=== PATIENT | male | born 1960 | race Caucasian/White ===

== ENCOUNTER → 2016-10-17 | Outpatient (CLI) | payer OTHER ==
[2016-10-17 18:04] LABS: Basophils % (A) 1 %; CH 30.7; CHCM 34.9; Eosinophils # (A) 0.2 k/uL (0-0.7); Eosinophils % (A) 3 %; HCT 49.9 % (39.0-53.0); HDW 2.51; HGB 16.5 gm/dL (13.0-17.5); Luc # (Auto) 0.07; Luc % (Auto) 1; Lymphocytes # (A) 1.9 k/uL (1.0-4.8); Lymphocytes % (A) 31 %; MCH 29.2 pg (25.0-35.0); MCHC 33.1 g/dL (31.0-37.0); MCV 88.2 fL (80.0-100.0); Mean Platelet Volume 6.6; Monocytes # (A) 0.3 k/uL (0-1.0); Monocytes % (A) 4 %; Neutrophils # (A) 3.6 k/uL (1.3-7.7); Neutrophils % (A) 60 %; RBC 5.66 m/uL (4.30-5.90); RDW 12.5 % (11.5-15.5); WBC (Perox) 5.97
[2016-10-17 18:18] LABS: ALT 26 U/L (21-72); AST 23 U/L (17-59); Alkaline Phosphatase 60 U/L (38-126); Anion Gap 11 mmol/L; Blood Urea Nitrogen 12 mg/dL (9-20); Calcium 9.4 mg/dL (8.4-10.2); Carbon Dioxide 28 mmol/L (22-30); Chloride 105 mmol/L (98-107); Cholesterol 141 mg/dL (<200); Glucose 134 mg/dL (74-99); HDL Cholesterol 53 mg/dL (40-60); Non-African American GFR(MDRD) >60 (>60 ml/min/1.73 sqM); Potassium 4.1 mmol/L (3.5-5.1); Sodium 144 mmol/L (137-145); Total Bilirubin 0.5 mg/dL (0.2-1.3); Total Protein 7.1 g/dL (6.3-8.2); Triglycerides 75 mg/dL (<150)
== END | disposition home or self-care (01) ==
LOC: MMGSC 15:54
PROVIDERS: ATTEND Family Medicine
DX: Z12.5 Encounter for screening for malignant neoplasm of prostate (principal); R03.0 Elevated blood-pressure reading, without diagnosis of hypertension; E29.1 Testicular hypofunction
CPT/HCPCS: 84439; 80053; 80061; 84443; 85025; 84403; 36415; G0103

== ENCOUNTER → 2017-02-14 | Outpatient (CLI) | payer OTHER ==
--- NOTE | 2017-02-14 10:45 | EST ---
DATE OF SERVICE: 02/14/2017 AGE: 56Y SEX: M HT: 5'11" WT: 170 lbs. Protocol Marcelo: X Other: Cardiolite Stage: III Dur. of Exercise: 11 minutes *Heart Rate Blood Pressure *Rest: 59 Rest: 142/90 * *Max. Achieved: 139 Maximum BP: 196/100 85% PMHR: 139 100% PMHR: 164 *METS: 12.1 INDICATIONS: Chest pain, hypertension. MEDICATIONS: Patient was exercised for a total period of 11 minutes. Peak heart rate of 139 was achieved. Maximum blood pressure of 196/100 mmHg was noted. EKG shows normal sinus rhythm with normal IL interval and QRS duration and normal ST-T waves. ( ) exercise minimal upsloping ST segment changes were noted. The patient did not complain of any anginal pain during the test. FINAL IMPRESSION: 1. This exercise test is not suggestive of ischemia. 2. Patient's exercise tolerance is normal. 3. Patient did not complain of any chest pain during the test. 4. The results of the nuclear study will follow.
--- NOTE | 2017-02-14 12:26 | NM ---
EXAMINATION TYPE: NM stress cardiolite complete DATE OF EXAM: 02/14/2017 COMPARISON: NONE HISTORY: Chest pain and hypertension TECHNIQUE: After the intravenous administration of 11 mCi Tc 99m Sestamibi - Rest images obtained 45 minutes post injection. The patient exercised using a KASHIF protocol and 1 minute prior to peak ex ercise was injected with 27 mCi Tc 99m Sestamibi - Stress images obtained 20 minutes post injection. FINDINGS: Targeted heart rate was achieved during performance of the study. Review of stress and rest SPECT roney ges demonstrates no distinct perfusion abnormality. Gated analysis shows normal wall motion with an estimated left ventricular ejection fraction of 57 %. Some mild cardiac apex thickening may be present. IMPRESSION: 1. No stress-induced ischemic changes.
== END | disposition home or self-care (01) ==
LOC: RADNMMAIN 07:45
PROVIDERS: ATTEND Family Medicine
DX: R07.9 Chest pain, unspecified (principal); I10 Essential (primary) hypertension
CPT/HCPCS: 93017; 78452; A9500

== ENCOUNTER → 2020-03-28 | Outpatient (CLI) | payer OTHER ==
--- NOTE | 2020-03-28 12:33 | MR ---
EXAMINATION TYPE: MR shoulder RT wo con DATE OF EXAM: 03/28/2020 COMPARISON: Outside right shoulder x-ray March 01, 2020 HISTORY: Right shoulder pain per order. Pain with difficulty raising overhead for 6 to 8 months per p atient. TECHNIQUE: Multiplanar, multisequence imaging of the right shoulder is performed without contrast. FINDINGS: Rotator Cuff: Some increased signal distal supraspinatus and infraspinatus tendons. Small articular s urface tears present for reference supraspinatus tear measures 7 mm AP diameter by 4 mm transversely sagittal image 22 and coronal image 12 respectively. Additional tiny tear anterior fibers of the infr aspinatus tendon fell present sagittal image 23 and coronal image 17. No full-thickness retracted tea r is identified. Rotator cuff muscle bulk preserved. Subscapularis tendon intact. Acromioclavicular Joint: Mild to moderate narrowing with moderate capsular hypertrophy. No significan t spurring. Underlying fat plane maintained. Distal acromion morphology unremarkable. Glenohumeral Joint: Mild to moderate narrowing with small glenohumeral joint effusion. No significant spurring. Labrum: The labrum appears grossly intact given limitation of non-arthrogram study. Biceps Tendon: The long head of biceps is in normal location within bicipital groove. Bone marrow signal: A few tiny subchondral cysts scattered throughout the humeral head. Other: No additional significant abnormality is appreciated. IMPRESSION: Tendinosis and partial articular surface tearing of the supraspinatus and to lesser degre e infraspinatus tendons. No full-thickness retracted tear is identified.
== END | disposition home or self-care (01) ==
LOC: RADMRIMAIN 11:40
PROVIDERS: ATTEND Orthopaedic Surgery
DX: M75.101 Unspecified rotator cuff tear or rupture of right shoulder, not specified as traumatic (principal)

== ENCOUNTER → 2020-04-27 | Outpatient (CLI) | payer OTHER ==
--- NOTE | 2020-04-27 09:00 | MR ---
EXAMINATION TYPE: MR lumbar spine wo con DATE OF EXAM: 04/27/2020 COMPARISON: None HISTORY: Low back pain TECHNIQUE: Multiplanar, multisequence images of the lumbar spine were acquired. L1-L2: Normal disc appearance without desiccation. No herniation, protrusion or disc bulging. No ca nal stenosis is present. Foramina are patent bilaterally. L2-L3: Posterior broad-based disc bulge causes mild anterior mass effect on the thecal sac. L3-L4: Mild posterior broad-based disc bulge causes slight anterior mass effect on the thecal sac. Th ere is some facet arthropathy change. L4-L5: Minimal posterior broad-based disc bulge causes slight anterior mass effect on the thecal sac. L5-S1: There is facet arthropathy change. Minimal posterior disc bulge causes slight anterior mass ef fect on the thecal sac. Lumbar segments are intact. No paraspinal masses are identified. Conus medullaris has a normal appe arance. Lumbar vertebral bodies show preserved height and alignment. There is multilevel spondylosis with endplate discogenic marrow signal change. Some mild loss of disc height signal present at interv ertebral levels. At T11-12 posterior extension endplate disc complex causes anterior mass effect on t he thecal sac. No significant spinal stenosis or foraminal encroachment is noted within the lumbar sp ine. Probable parapelvic cysts noted within the kidneys. IMPRESSION: Mild degenerative disc disease. Additional findings above. Facet arthropathy.
== END | disposition home or self-care (01) ==
LOC: RADMRIMAIN 06:12
PROVIDERS: ATTEND Family Medicine
DX: M51.36 Other intervertebral disc degeneration, lumbar region (principal); M47.896 Other spondylosis, lumbar region
CPT/HCPCS: 72148

== ENCOUNTER 2020-04-28 07:24 | Day surgery (SDC) | payer OTHER ==
[2020-04-25 15:26] VITALS: BMI 24.4
--- NOTE | 2020-04-27 14:23 | HP ---
HISTORY AND PHYSICAL DATE OF SURGERY: 04/28/2020 Evangelista Diana is a 59-year-old patient who was seen with progressive right shoulder pain. We discussed options for treatment. He elected to proceed with arthroscopy. Consent was obtained. PAST MEDICAL HISTORY: Hypertension. PAST SURGICAL HISTORY: Eye surgery. DAILY MEDICATIONS: Amlodipine. ALLERGIES: None. SOCIAL HISTORY: Denies tobacco use. PHYSICAL EVALUATION OF THE RIGHT SHOULDER: Flexion is 90 degrees, abduction is 80 degrees, external rotation is 40 degrees with pain and weakness. There is tenderness along the anterolateral acromion and rotator cuff insertion site. Impingement is positive at 80 degrees. Drop-arm sign is positive. His distal neurovascular exam is intact. Radiographs of the right shoulder revealed a type 2 anterior acromion, acromioclavicular joint osteoarthritis and cystic changes of the tuberosity. Right shoulder MRI revealed rotator cuff partial rotator cuff tendon tear. IMPRESSION: 1. Right shoulder impingement with rotator cuff tear. 2. Right shoulder acromioclavicular joint osteoarthritis. 3. Hypertension. PLAN: Right shoulder arthroscopy, subacromial decompression, arthroscopic rotator cuff repair, Hang procedure and debridement. MMODL / IJN: [id number] /
[2020-04-28] MEDS ORDERED: ONDANSETRON 4 MG/2 ML VIAL ONE (08:01)
[2020-04-28] MEDS ORDERED: LACTATED RINGERS 1,000 ML IV ONE ×2 (08:15)
[2020-04-28] MEDS ORDERED: LIDOCAINE 1% (10MG/ML) FOR IV START INTRADERMA ONE (08:15)
[2020-04-28] MEDS ORDERED: DEXAMETHASONE SOD PHOSPHATE 10 MG/ML 1 ML VIAL IV ONE (08:29)
[2020-04-28] MEDS ORDERED: ONDANSETRON 4 MG/2 ML VIAL IVP ONE (08:29)
[2020-04-28] MEDS ORDERED: MIDAZOLAM 2 MG/2 ML VIAL IVP ONE (08:33)
[2020-04-28] MEDS ORDERED: fentaNYL (PF) 50 MCG/ML 2 ML AMP IVP ONE (08:33)
[2020-04-28] MEDS ORDERED: SCOPOLAMINE 1.5MG/72HR PATCH TRANSDERM ONE (08:51)
--- NOTE | 2020-04-28 09:08 | P.ANPRN ---
Procedure Note - Anesthesia - Nerve Block Performed Right Interscalene Single Time Out Performed: Yes ([id number]) Date of Procedure: 04/28/20 Procedure Start Time: 08:34 Procedure Stop Time: 08:38 Location of Patient: PreOp Indication: Acute Post-Operative Pain, Requested by Surgeon Specifically requested for management of pain by DrLucina: Landen Wheatley Sedation Type: Sedate with meaningful contact maintained Preparation: Sterile Prep Position: Supine Catheter: None Needle Types: Pajunk Needle Gauge: 21 Ultrasound used to visualize needle placement: Yes Ultrasound used to observe medication spread: Yes Injectate: 0.5% Ropivacaine (see comment for volume) (20cc) Blood Aspirated: No Pain Paresthesia on Injection Noted: No Resistance on Injection: Normal Image Stored and Saved: Yes Events: Uneventful and Well Tolerated
[2020-04-28] MEDS ORDERED: SUCCINYLCHOLINE CHLORIDE 100 MG/5 ML SYR IV ONE (09:19)
[2020-04-28] MEDS ORDERED: ROPIVACAINE 5 MG/ML 30 ML VIAL ONE (09:19)
[2020-04-28] MEDS ORDERED: PROPOFOL 10 MG/ML 20 ML VIAL IV ONE (09:19)
[2020-04-28] MEDS ORDERED: MIDAZOLAM 2 MG/2 ML VIAL ONE (09:19)
[2020-04-28] MEDS ORDERED: LIDOCAINE 1% INJ 10MG/ML (20 ML MDV) ONE (09:19)
[2020-04-28 10:49] VITALS: TEMP 97
--- NOTE | 2020-04-28 10:57 | P.OP ---
Date of Procedure: 04/28/20 Preoperative Diagnosis: Right shoulder impingement Postoperative Diagnosis: 1. Right shoulder rotator cuff tear 2. Right shoulder impingement 3. Right shoulder acromioclavicular joint osteoarthritis 4. Right shoulder partial long head biceps tendon tear 5. Right shoulder superficial labral tear Procedure(s) Performed: 1. Right shoulder arthroscopic rotator cuff repair 2. Right shoulder arthroscopic subacromial decompression 3. Right shoulder arthroscopic Hang procedure 4. Right shoulder arthroscopic biceps tenotomy 5. Right shoulder arthroscopic debridement labral tear Implants: 14.75 Arthrex swivel lock anchor Anesthesia: GETA, regional (Interscalene block) Surgeon: Landen Wheatley Social Insurance Specialist #1: Wilver Zapata Estimated Blood Loss (ml): 8 Pathology: none sent Condition: stable Disposition: PACU Indications for Procedure: 59-year-old patient seen with progressive right shoulder pain. After having treatment options discussed, he elected to proceed with arthroscopy. Operative Findings: See description of procedure Description of Procedure: Patient underwent an interscalene block by department of anesthesia. The patient was then taken to the operative suite. The patient underwent a general anesthetic by the department of anesthesia. The patient was placed into a lateral position and secured. There was appropriate padding of the bony prominence. Right shoulder was then prepped and draped in normal sterile orthopedic fashion. We placed the extremity in 10 pounds of longitudinal traction. A posterior incision was now made for a posterior working portal site. The trocar and cannula were inserted into the glenohumeral joint. Arthroscopy was initiated. Spinal needle was now inserted anteriorly, to ascertain the anterior working portal site. An incision was now made in that area, a trocar was inserted followed by a probe. There was partial tearing and hyperemia long head biceps tendon. There was superficial tearing of the anterior/superior labrum. There was no significant chondromalacia present. I performed an arthroscopic biceps tenotomy. I debrided that superficial labral tear getting down to stable labral tissue. The residual labrum was probed and found to be stable. Instruments were now removed from the glenohumeral joint. Utilizing the posterior working portal site, the trocar and cannula were inserted into the subacromial space. Arthroscopy initiated. I made an incision 2 fingerbreadths lateral to the acromion. I introduced my trocar followed by my ArthroCare ablator. I now began ablating thick subacromial bursal tissue, which exposed the undersurface of the anterior acromion. There was diminished subacromial space. There was a very prominent anterior acromion. A motorized bur was introduced and a subacromial decompression was performed. I also excised some osteophytes off the inferior aspect of the distal clavicle. The AC joint was visualized and noted to be fairly arthritic. The motorized bur was introduced in the anterior portal site and a Hang procedure was performed without difficulty, decompressing the AC joint nicely. I turned my attention to the rotator cuff. There was a 1.5 cm rotator cuff tear. I debrided the margins getting down to stable tendon tissue. I abraded the footprint with a motorized bur. I passed 2 everted mattress sutures through good bites of rotator cuff tendon. I punched hole in the footprint for insertion of an anchor. All 4 limbs of suture were passed through the eyelet of a 4.75 Arthrex swivel lock anchor. I now placed the eyelet into the pre-punch hole. While I held the eyelet/anchor in position Jason SIMMONS tensioned all sutures and deployed the anchor. There was good fixation of the anchor. All residual suture limbs were now clipped. We had good compression of the tendon along the entire footprint. I injected 1 mL Renyte intra-articular. Instruments now removed from the portal sites. All portal sites were approximated with nylon suture. Sterile dressings were applied followed by a shoulder sling. Wilver SIMMONS assisted in this complex case. The patient was awakened, transferred to a bed, and taken to recovery in stable condition.
[2020-04-28] MEDS: HYDROmorphone 1 MG/ML 1 ML SYRINGE IVP ONE ×3 (11:05→11:19)
[2020-04-28] MEDS ORDERED: IV FLUID CONTINUATION 1,000 ML IV ONE (11:29)
[2020-04-28] MEDS ORDERED: HYDROcodone/APAP 5-325MG 1 EACH TAB ONE (11:43)
[2020-04-28] MEDS ORDERED: HYDROcodone/APAP 5-325MG 1 EACH TAB PO ONE (11:45)
[2020-04-28 12:11] VITALS: BP 106/64; PULSE 59; RESP 16
== END 2020-04-28 12:27 | disposition home or self-care (01) ==
LOC: OR 07:24
PROVIDERS: ATTEND Orthopaedic Surgery
DX: M75.101 Unspecified rotator cuff tear or rupture of right shoulder, not specified as traumatic (principal); M75.41 Impingement syndrome of right shoulder; M19.011 Primary osteoarthritis, right shoulder; M25.811 Other specified joint disorders, right shoulder; S46.111A Strain of muscle, fascia and tendon of long head of biceps, right arm, initial encounter; S43.431A Superior glenoid labrum lesion of right shoulder, initial encounter; I10 Essential (primary) hypertension; K21.9 Gastro-esophageal reflux disease without esophagitis; H54.62 Unqualified visual loss, left eye, normal vision right eye; Z79.899 Other long term (current) drug therapy; Z98.890 Other specified postprocedural states
CPT/HCPCS: 64415; 76942; 29824; 29826; 29827; C1713; Q4212; J2250; J1100; J0690; J2405; J2001; J3010; J1170; J2795; J0330; J2704

== ENCOUNTER → 2021-03-01 | Outpatient (CLI) | payer OTHER | END | disposition home or self-care (01) ==

== ENCOUNTER → 2021-03-22 | Outpatient (CLI) | payer OTHER ==
[2021-03-22 11:20] LABS: Basophils % (A) 1 %; Eosinophils # (A) 0.1 k/uL (0-0.7); Eosinophils % (A) 2 %; HCT 46.8 % (39.0-53.0); HGB 15.6 gm/dL (13.0-17.5); Lymphocytes # (A) 1.6 k/uL (1.0-4.8); Lymphocytes % (A) 30 %; MCH 30.7 pg (25.0-35.0); MCHC 33.4 g/dL (31.0-37.0); MCV 91.9 fL (80.0-100.0); Mean Platelet Volume 6.8; Monocytes # (A) 0.3 k/uL (0-1.0); Monocytes % (A) 6 %; Neutrophils # (A) 3.1 k/uL (1.3-7.7); Neutrophils % (A) 59 %; Platelet Count 272 k/uL (150-450); RBC 5.09 m/uL (4.30-5.90); RDW 12.4 % (11.5-15.5); WBC 5.3 k/uL (3.8-10.6)
[2021-03-22 11:32] LABS: Potassium 4.3 mmol/L (3.5-5.1)
== END | disposition home or self-care (01) ==
LOC: LABPAT 10:09
PROVIDERS: ATTEND Orthopaedic Surgery
DX: Z01.812 Encounter for preprocedural laboratory examination (principal); Z01.810 Encounter for preprocedural cardiovascular examination; M23.91 Unspecified internal derangement of right knee
CPT/HCPCS: 36415; 80051; 85025; 93005

== ENCOUNTER 2021-04-12 09:08 | Day surgery (SDC) | payer OTHER ==
[2021-04-10 14:55] VITALS: BMI 24.4
--- NOTE | 2021-04-11 15:08 | HP ---
HISTORY AND PHYSICAL REASON FOR ADMISSION: Surgery scheduled 04/12/2021 HISTORY OF PRESENT ILLNESS: Evangelista Diana is a 68-year-old patient seen with progressive right knee pain. We discussed options. He elected to proceed with arthroscopy. Consent was obtained. PAST MEDICAL HISTORY: Hypertension. PAST SURGICAL HISTORY: Spine surgery. DAILY MEDICATIONS: Amlodipine, ibuprofen. ALLERGIES: None. SOCIAL HISTORY: Denies tobacco use. PHYSICAL EXAMINATION: Evaluation of the right knee: His range of motion is -2/3-120. Mild effusion. Tenderness medial joint line. Positive medial Fernanda's. Ligaments stable. Hip rotation without pain. Distal neurovascular exam intact. Right knee radiographs revealed mild osteoarthritis. IMPRESSION: Internal derangement with medial meniscal tear. PLAN: Right knee arthroscopy with partial meniscectomy and debridement. Surgery scheduled 04/12/2021. MMODL / IJN: [id number] /
[~2021-04-12 09:08] MED LIST: DEXAMETHASONE SOD PHOSPHATE 4 MG/ML 1 ML VIAL IV ONE; LACTATED RINGERS 1,000 ML IV SCH; LIDOCAINE 1% (10MG/ML) FOR IV START INTRADERMA PRN; ONDANSETRON 4 MG/2 ML VIAL IVP ONE; SCOPOLAMINE 1.5MG/72HR PATCH TRANSDERM ONE
[2021-04-12] MEDS ORDERED: MIDAZOLAM 2 MG/2 ML VIAL IV ONE (10:09)
[2021-04-12] MEDS ORDERED: GLYCOPYRROLATE 0.2 MG/ML 2 ML VIAL ONE (10:19)
[2021-04-12] MEDS ORDERED: fentaNYL (PF) 50 MCG/ML 2 ML AMP ONE (10:19)
[2021-04-12] MEDS ORDERED: PROPOFOL 10 MG/ML 20 ML VIAL IV ONE (10:19)
[2021-04-12] MEDS ORDERED: LIDOCAINE 1% INJ 10MG/ML (20 ML MDV) ONE (10:19)
[2021-04-12] MEDS ORDERED: BUPIVACAINE (PF) 0.25% 30 ML VIAL SQ ONE (10:22)
--- NOTE | 2021-04-12 11:14 | P.OP ---
Date of Procedure: 04/12/21 Preoperative Diagnosis: Internal derangement right knee Postoperative Diagnosis: 1. Tear medial meniscus right knee 2. Reactive synovitis medial, lateral and suprapatellar compartments right knee Procedure(s) Performed: 1. Arthroscopic partial medial meniscectomy right knee 2. Arthroscopic partial synovectomy medial, lateral and suprapatellar compartments right knee Anesthesia: ZINAA, local Surgeon: Landen Wheatley Estimated Blood Loss (ml): 8 Pathology: none sent Condition: stable Disposition: PACU Indications for Procedure: 60-year-old gentleman seen with progressive right knee pain. After having treatment options discussed, he elected to proceed with arthroscopy. Operative Findings: see description of procedure Description of Procedure: Patient was taken to the operative suite. Patient underwent a general anesthetic by the department of anesthesia. Patient was given preoperative antibiotics. The right lower extremity was placed in a well-padded arthroscopic leg moise. The right leg was prepped and draped in the normal sterile orthopedic fashion. A lateral parapatellar and suprapatellar incision was made. Trochars were inserted. Arthroscopy was initiated. Suprapatellar pouch revealed diffuse thick reactive synovitis. The patellofemoral joint appeared to articulate congruently. There was no significant chondromalacia present. The scope was guided into the medial gutter. No loose bodies or plica were identified. The scope was then guided into the medial compartment. A medial parapatellar incision was made. Trocar inserted followed by probe. There was a complex tear involving the posterior horn medial meniscus. There were grade 1 chondromalacia changes medial femoral condyle. There was thick reactive synovitis anteriorly. I performed a partial medial meniscectomy getting down to stable meniscal tissue. I performed a partial synovectomy decompressing the thick reactive synovitis. The shaver was removed. The residual meniscus was stable. There was good decompression of the synovitis. Scope and probe were then guided into the intercondylar notch. Cruciates were identified, probed and found to be stable. The scope and probe were then guided into lateral humza rtment. Lateral meniscus was probed and found to be stable. There was some thick reactive synovitis anteriorly. There was no significant chondromalacia. I introduced a motorized shaver and performed a partial synovectomy decompressing the thick reactive synovitis. The shaver was removed. There appeared be good decompression of the synovitis. The scope was in guided back into the suprapatellar compartment. I introduced a motorized shaver into the super patellar compartment. I debrided some piecemeal fragments of meniscus I encountered. I performed a partial synovectomy. The shaver was removed. There was good decompression of the synovitis. I took one more look around the entire knee, no residual debris. Instruments were now removed from the joint. The joint was infiltrated with .25% Marcaine. Steri-Strips were applied to the portal sites. Sterile dressings were applied. The patient was placed into a STEPHANIE hose. No tourniquet was utilized. The patient was awakened, transferred to a bed and taken to recovery stable satisfactory condition.
[2021-04-12 11:16] VITALS: TEMP 97
[2021-04-12] MEDS: HYDROmorphone 0.5 MG/0.5 ML SYRINGE IVP PRN ×2 (11:40→11:47)
[2021-04-12 11:48] VITALS: RESP 16
[2021-04-12 13:32] VITALS: BP 132/76; PULSE 75
== END 2021-04-12 13:33 | disposition home or self-care (01) ==
LOC: OR 09:08
PROVIDERS: ATTEND Orthopaedic Surgery
DX: S83.241A Other tear of medial meniscus, current injury, right knee, initial encounter (principal); I10 Essential (primary) hypertension; K21.9 Gastro-esophageal reflux disease without esophagitis
CPT/HCPCS: 29881; 29876; J2250; J1100; J0690; J2405; J2001; J3010; J2704; J1170

== ENCOUNTER 2022-01-25 20:04 | Emergency (ER) | payer OTHER ==
[2022-01-25 20:11] VITALS: TEMP 98
--- NOTE | 2022-01-25 21:26 | US ---
EXAMINATION TYPE: US scrotum with doppler. Grayscale and color Doppler Duplex imaging performed of naeem valle scrotum. DATE OF EXAM: 01/25/2022 COMPARISON: NONE CLINICAL HISTORY: TESTICULAR PAIN. Patient had surgery 6 days ago to remove a left spermatocele per p atient. EXAM MEASUREMENTS: TESTICLES: Right Testicle: 4.2 x 2.5 x 3.0 cm Left Testicle: 4.4 x 3.0 x 3.4 cm; swelling noted; surgery 6 days ago. EPIDIDYMIS HEAD: Right Epididymis: 1.0 x 1.1 x 1.0 cm Left Epididymis: Unable to delineate Doppler performed to assess for testicular vascularity; good bilateral color flow and waveforms are s een. There is no evidence of testicular torsion. Presence of hydroceles: Right-sided small hydrocele noted Presence of varicoceles: Potential varicocele seen left groin, area of pain. Multiple dilated vessel s are seen which increase on Valsalva maneuver. IMPRESSION: 1. Left varicocele suggest an area of patient's pain. 2. Postsurgical changes with appropriate color Doppler flow to the testes. 3. Small right hydrocele.
[2022-01-25] MEDS ORDERED: HYDROmorphone 1 MG/ML 1 ML SYRINGE IVP STA (22:03)
[2022-01-25] MEDS ORDERED: ONDANSETRON 4 MG/2 ML VIAL IVP STA (22:03)
--- NOTE | 2022-01-25 22:04 | ED ---
Male Urogenital HPI - General Chief complaint: Urogenital Stated complaint: Post-op complications Time Seen by Provider: 01/25/22 21:22 Source: patient, RN notes reviewed Mode of arrival: ambulatory Limitations: no limitations - History of Present Illness Initial comments: This is a pleasant 61-year-old male with a history of hypertension. He presents to the emergency department today complaining of left groin pain and scrotal pain. 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 Kimbrough. Patient states he was initially sent home on pain medication which he ran out of. He did call back on Saturday and get a refill. However he states the pain is exactly progressive. Patient also having fairly extensive bruising to the area. Patient does have scrotal swelling. Patient denying any fever or chills. States that the pain is dull and constant. Exacerbated by palpation and movement. No headache, no fever or chills, no changes in vision or hearing, no sore throat or difficulty with speech, no neck pain, no chest pain or shortness of breath, no abdominal pain, no nausea or vomiting, no changes in urination or bowel movements, no numbness or tingling, no extremity pain, no skin rashes or lesions. Onset/Timin -: week(s) - Related Data Home Medications Medication Instructions Recorded Confirmed Esomeprazole Magnesium [NexIUM] 20 mg PO DAILY PRN 04/25/20 01/25/22 amLODIPine BESYLATE/BENAZEPRIL 1 cap PO DAILY@1800 04/25/20 01/25/22 [amLODIPine BESYLATE/BENAZEPRIL 10-20 mg] HYDROcodone/APAP 5-325MG [[place] 1 tab PO TID PRN 01/25/22 01/25/22 5-325] Sildenafil Citrate 100 mg PO DIRECTED PRN 01/25/22 01/25/22 Previous Rx's Medication Instructions Recorded Ketorolac [Toradol] 10 mg PO Q6HR PRN #16 tab 01/26/22 Allergies Allergy/AdvReac Type Severity Reaction Status Date / Time No Known Allergies Allergy Verified 01/25/22 22:12 Review of Systems ROS Statement: Those systems with pertinent positive or pertinent negative responses have been documented in the HPI. ROS Other: All systems not noted in ROS Statement are negative. Past Medical History Past Medical History: Hypertension History of Any Multi-Drug Resistant Organisms: None Reported Past Surgical History: Orthopedic Surgery Additional Past Surgical History / Comment(s): testicular and eye surgery Past Psychological History: No Psychological Hx Reported Smoking Status: Never smoker Past Alcohol Use History: None Reported Past Drug Use History: None Reported General Exam - General Exam Comments Initial Comments: Patient noted to be mildly hypertensive. Remainder of the vital signs are stable. Patient does not appear to be ill or toxic. Mild distress. Limitations: no limitations General appearance: alert, in distress Head exam: Present: atraumatic, normocephalic, normal inspection Eye exam: Present: normal appearance, PERRL, EOMI. Absent: scleral icterus, conjunctival injection, periorbital swelling ENT exam: Present: normal exam, mucous membranes moist Neck exam: Present: normal inspection, full ROM. Absent: tenderness, meningismus, lymphadenopathy Respiratory exam: Present: normal lung sounds bilaterally, chest wall tenderness, accessory muscle use. Absent: respiratory distress, wheezes, rales, rhonchi, stridor Cardiovascular Exam: Present: regular rate, normal rhythm, normal heart sounds. Absent: systolic murmur, diastolic murmur, rubs, gallop, clicks GI/Abdominal exam: Present: soft, normal bowel sounds. Absent: distended, tenderness, guarding, rebound, rigid exam: Present: testicular tenderness (Patient has generalized scrotal tenderness with edema), scrotal swelling, other (Surgical incision appears to be healing well. Good approximation. No dehiscence.). Absent: urethral discharge External exam: Present: other (Patient has extensive ecchymosis involving the groin region bilaterally as well as the scrotal area.) Extremities exam: Present: normal inspection, full ROM, normal capillary refill. Absent: tenderness, pedal edema, joint swelling, calf tenderness Back exam: Present: normal inspection Neurological exam: Present: alert, oriented X3, CN II-XII intact Psychiatric exam: Present: normal affect, normal mood Skin exam: Present: warm, dry, intact, normal color. Absent: rash Course Vital Signs 01/25/22 01/26/22 20:08 00:17 Temperature 98.0 F Pulse Rate 100 83 Respiratory 18 16 Rate Blood Pressure 151/91 115/61 O2 Sat by Pulse 98 95 Oximetry - Reevaluation(s) Reevaluation #1: 01/26/22 00:15 Medical record is reviewed Symptoms are improved here in the emergency department Patient is informed of results and questions answered Patient in no distress - Consultations Consultation #1: Case was discussed in detail with Dr. quintanilla who did not suggest any further imaging. He suspects patient has a hematoma in the area of the spermatic cord on the left. He suggested conservative therapy with ice, scrotal elevation with a jockstrap, pain medication, and follow-up at the office. He did suggest that I have the patient contact the office tomorrow. Medical Decision Making - Medical Decision Making Patient presents with postsurgical edema and pain related to spermatocele surgery which she had on . We'll order baseline labs, ultrasound shows left sided varicocele, postsurgical changes with appropriate Doppler flow to both testes, small right hydrocele This case was discussed with the on-call urologist. He suspects the patient has a postsurgical hematoma. He suggested scrotal elevation, ice, anti- inflammatory medication in the form of ketorolac and follow-up with urology. Showed no evidence of infectious process. No evidence of platelet disorder or coagulation disorder. There was a hydrocele which could be contributing to the patient's pain. Patient had good blood flow to both testes. Patient was told to return to the ER for any signs or symptoms worsen. Told to return immediately if any other problems arise. All questions answered. Treatment plan discussed. Patient in agreement Every effort has been made to ensure accuracy of this dictation. However, due to the limitations of electronic medical records and dictation devices, errors in charting still occur. Landscape Crew Member Dr. Crane - Lab Data Result diagrams: 01/25/22 21:45 01/25/22 21:45 Lab Results 01/25/22 01/25/22 01/25/22 Range/Units 21:45 21:45 21:45 WBC 9.8 (3.8-10.6) k/uL RBC 5.01 (4.30-5.90) m/uL Hgb 15.4 (13.0-17.5) gm/dL Hct 44.8 (39.0-53.0) % MCV 89.4 (80.0-100.0) fL MCH 30.7 (25.0-35.0) pg MCHC 34.4 (31.0-37.0) g/dL RDW 13.1 (11.5-15.5) % Plt Count 309 (150-450) k/uL MPV 6.8 Neutrophils % 69 % Lymphocytes % 21 % Monocytes % 6 % Eosinophils % 3 % Basophils % 1 % Neutrophils # 6.7 (1.3-7.7) k/uL Lymphocytes # 2.1 (1.0-4.8) k/uL Monocytes # 0.6 (0-1.0) k/uL Eosinophils # 0.3 (0-0.7) k/uL Basophils # 0.0 (0-0.2) k/uL PT 9.7 (9.0-12.0) sec INR 0.9 (<1.2) APTT 29.2 (22.0-30.0) sec Sodium 138 (137-145) mmol/L Potassium 4.1 (3.5-5.1) mmol/L Chloride 103 (98-107) mmol/L Carbon Dioxide 29 (22-30) mmol/L Anion Gap 6 mmol/L BUN 17 (9-20) mg/dL Creatinine 0.86 (0.66-1.25) mg/dL Est GFR (CKD-EPI)AfAm >90 (>60 ml/min/1.73 sqM) Est GFR (CKD-EPI)NonAf >90 (>60 ml/min/1.73 sqM) Glucose 88 (74-99) mg/dL Calcium 8.5 (8.4-10.2) mg/dL Total Bilirubin 0.4 (0.2-1.3) mg/dL AST 20 (17-59) U/L ALT 15 (4-49) U/L Alkaline Phosphatase 65 (38-126) U/L Total Protein 6.7 (6.3-8.2) g/dL Albumin 4.2 (3.5-5.0) g/dL Urine Color Urine Appearance (Clear) Urine pH (5.0-8.0) Ur Specific [place] (1.001-1.035) Urine Protein (Negative) Urine Glucose (UA) (Negative) Urine Ketones (Negative) Urine Blood (Negative) Urine Nitrite (Negative) Urine Bilirubin (Negative) Urine Urobilinogen (<2.0) mg/dL Ur Leukocyte Esterase (Negative) 01/25/22 Range/Units 23:23 WBC (3.8-10.6) k/uL RBC (4.30-5.90) m/uL Hgb (13.0-17.5) gm/dL Hct (39.0-53.0) % MCV (80.0-100.0) fL MCH (25.0-35.0) pg MCHC (31.0-37.0) g/dL RDW (11.5-15.5) % Plt Count (150-450) k/uL MPV Neutrophils % % Lymphocytes % % Monocytes % % Eosinophils % % Basophils % % Neutrophils # (1.3-7.7) k/uL Lymphocytes # (1.0-4.8) k/uL Monocytes # (0-1.0) k/uL Eosinophils # (0-0.7) k/uL Basophils # (0-0.2) k/uL PT (9.0-12.0) sec INR (<1.2) APTT (22.0-30.0) sec Sodium (137-145) mmol/L Potassium (3.5-5.1) mmol/L Chloride (98-107) mmol/L Carbon Dioxide (22-30) mmol/L Anion Gap mmol/L BUN (9-20) mg/dL Creatinine (0.66-1.25) mg/dL Est GFR (CKD-EPI)AfAm (>60 ml/min/1.73 sqM) Est GFR (CKD-EPI)NonAf (>60 ml/min/1.73 sqM) Glucose (74-99) mg/dL Calcium (8.4-10.2) mg/dL Total Bilirubin (0.2-1.3) mg/dL AST (17-59) U/L ALT (4-49) U/L Alkaline Phosphatase (38-126) U/L Total Protein (6.3-8.2) g/dL Albumin (3.5-5.0) g/dL Urine Color Yellow Urine Appearance Clear (Clear) Urine pH 6.5 (5.0-8.0) Ur Specific [place] 1.015 (1.001-1.035) Urine Protein Negative (Negative) Urine Glucose (UA) Negative (Negative) Urine Ketones Negative (Negative) Urine Blood Negative (Negative) Urine Nitrite Negative (Negative) Urine Bilirubin Negative (Negative) Urine Urobilinogen <2.0 (<2.0) mg/dL Ur Leukocyte Esterase Negative (Negative) - Radiology Data Radiology results: report reviewed, image reviewed Disposition Clinical Impression: Postoperative pain, Scrotal hematoma, Hydrocele Narrative: Postsurgical scrotal hematoma Disposition: HOME SELF-CARE Condition: Good Instructions (If sedation given, give patient instructions): Hydrocele (ED), He matoma (ED) Additional Instructions: Cold packs for 10-15 minutes at a time 4 times daily. Scrotal elevation with a jockstrap. Limit activity. Call in the morning at 8 AM to confirm your appointment with your urologist. Follow-up with your regular physician as directed. Return to the ER immediately if any symptoms worsen, new symptoms arise, or any other problems develop. Prescriptions: Ketorolac [Toradol] 10 mg PO Q6HR PRN #16 tab PRN Reason: Pain Is patient prescribed a controlled substance at d/c from ED?: No Referrals: Antonio Kimbrough MD [STAFF PHYSICIAN] - As Soon As Possible Time of Disposition: 00:17
[2022-01-25 23:05] LABS: ALT 15 U/L (4-49); AST 20 U/L (17-59); African American GFR (CKD) >90 (>60 ml/min/1.73 sqM); Albumin 4.2 g/dL (3.5-5.0); Alkaline Phosphatase 65 U/L (38-126); Anion Gap 6 mmol/L; Blood Urea Nitrogen 17 mg/dL (9-20); Calcium 8.5 mg/dL (8.4-10.2); Carbon Dioxide 29 mmol/L (22-30); Chloride 103 mmol/L (98-107); Glucose 88 mg/dL (74-99); Non-African American GFR(CKD) >90 (>60 ml/min/1.73 sqM); Potassium 4.1 mmol/L (3.5-5.1); Sodium 138 mmol/L (137-145); Total Bilirubin 0.4 mg/dL (0.2-1.3); Total Protein 6.7 g/dL (6.3-8.2)
[2022-01-25 23:10] LABS: INR 0.9 (<1.2); Partial Thromboplastin Time 29.2 sec (22.0-30.0); Prothrombin Time 9.7 sec (9.0-12.0)
[2022-01-25 23:22] LABS: Basophils % (A) 1 %; Eosinophils # (A) 0.3 k/uL (0-0.7); Eosinophils % (A) 3 %; HCT 44.8 % (39.0-53.0); HGB 15.4 gm/dL (13.0-17.5); Lymphocytes # (A) 2.1 k/uL (1.0-4.8); Lymphocytes % (A) 21 %; MCH 30.7 pg (25.0-35.0); MCHC 34.4 g/dL (31.0-37.0); MCV 89.4 fL (80.0-100.0); Mean Platelet Volume 6.8; Monocytes # (A) 0.6 k/uL (0-1.0); Monocytes % (A) 6 %; Neutrophils # (A) 6.7 k/uL (1.3-7.7); Neutrophils % (A) 69 %; Platelet Count 309 k/uL (150-450); RBC 5.01 m/uL (4.30-5.90); RDW 13.1 % (11.5-15.5); WBC 9.8 k/uL (3.8-10.6)
[2022-01-26 00:01] LABS: Appearance,Urine Clear (Clear); Bilirubin,Urine Negative (Negative); Blood,Urine Negative (Negative); Color,Urine Yellow; Glucose,Urine (UA) Negative (Negative); Ketones,Urine Negative (Negative); Leukocyte Esterase,Urine Negative (Negative); Nitrite,Urine Negative (Negative); PH, Urine 6.5 (5.0-8.0); Protein,Urine Negative (Negative); Specific Gravity,Urine 1.015 (1.001-1.035); Urobilinogen,Urine <2.0 mg/dL (<2.0)
[2022-01-26] MEDS ORDERED: ACET/COD 300 MG/30 MG STARTER PACK 6 TAB BTL PO STA (00:13)
[2022-01-26] MEDS ORDERED: KETOROLAC 15 MG/ML 1 ML VIAL IVP STA (00:14)
[2022-01-26 00:18] VITALS: BP 115/61; PULSE 83; RESP 16
== END 2022-01-26 00:33 | disposition home or self-care (01) ==
LOC: EC 20:04
DX: G89.18 Other acute postprocedural pain (principal); N43.3 Hydrocele, unspecified; S30.22XA Contusion of scrotum and testes, initial encounter; I10 Essential (primary) hypertension; Z79.899 Other long term (current) drug therapy; X58.XXXA Exposure to other specified factors, initial encounter
CPT/HCPCS: 36415; 80053; 85025; 85610; 85730; 93975; 76870; 99284; 96374; 96375 ×2; J2405; J1170; 81003

== ENCOUNTER → 2024-07-06 | Outpatient (CLI) | payer OTHER ==
--- NOTE | 2024-07-07 06:45 | MR ---
EXAMINATION TYPE: MR shoulder LT wo con DATE OF EXAM: 07/06/2024 COMPARISON: Outside left shoulder x-ray June 30, 2024 HISTORY: Left shoulder pain x1 year, Painful to raise Lt arm TECHNIQUE: Multiplanar, multisequence imaging of the left shoulder is performed without contrast. FINDINGS: Rotator Cuff: Increased signal along the supraspinatus and infraspinatus tendons. Intact subscapulari s tendon. Rotator cuff muscle bulk is preserved. Acromioclavicular Joint: Mild to moderate narrowing and spurring. Moderate capsular hypertrophy. Unde rlying fat plane is maintained. Glenohumeral Joint: Small joint effusion. Narrowing is seen. No significant spurring. Labrum: Heterogeneous increased signal superior labrum likely reflecting degenerative tear. Biceps Tendon: The long head of biceps is in normal location within bicipital groove. Bone marrow signal: No focal abnormal marrow signal is appreciated. Other: No additional significant abnormality is appreciated. IMPRESSION: 1. Tendinosis/partial tearing of the supraspinatus and infraspinatus tendons. 2. Degenerative superior labral tear. 3. Fairly moderate degenerative changes are present as detailed above. [facility], , 07/07/2024 6:43 AM
== END | disposition home or self-care (01) ==
LOC: RADMRIMAIN 18:40
PROVIDERS: ATTEND Orthopaedic Surgery
DX: S46.012A Strain of muscle(s) and tendon(s) of the rotator cuff of left shoulder, initial encounter (principal); M67.814 Other specified disorders of tendon, left shoulder; M19.012 Primary osteoarthritis, left shoulder

== ENCOUNTER → 2024-07-20 | Outpatient (CLI) | payer OTHER ==
[2024-07-20 18:37] LABS: Basophils # (A) 0.03 X 10*3/uL (0.00-0.10); Basophils % (A) 0.7 %; Eosinophils % (A) 2.4 %; HCT 46.3 % (39.6-50.0); HGB 15.8 g/dL (13.0-17.0); Immature Grans, Automated 0 %; Lymphocytes # (A) 1.64 X 10*3/uL (0.90-5.00); Lymphocytes % (A) 39.4 %; MCH 30.1 pg (27.0-32.0); MCHC 34.1 g/dL (32.0-37.0); MCV 88.2 FL (80.0-97.0); Mean Platelet Volume 9.2 FL (9.5-12.2); Monocytes # (A) 0.47 X 10*3/uL (0.20-1.00); Monocytes % (A) 11.3 %; NRBC Per 100 WBC 0 X 10*3/uL (0.00-0.01); Neutrophils # (A) 1.92 X 10*3/uL (1.80-7.70); Neutrophils % (A) 46.2 %; Platelet Count 214 X 10*3/uL (140-440); RBC 5.25 X 10*6/uL (4.40-5.60); RDW 12.8 % (11.5-14.5); WBC 4.16 X 10*3/uL (4.50-10.00)
== END | disposition home or self-care (01) ==
LOC: LABPAT 13:05
PROVIDERS: ATTEND Orthopaedic Surgery
DX: Z01.818 Encounter for other preprocedural examination (principal); M75.42 Impingement syndrome of left shoulder
CPT/HCPCS: 85025

== ENCOUNTER 2024-08-12 06:50 | Day surgery (SDC) | payer OTHER ==
--- NOTE | 2024-08-11 22:25 | HP ---
HISTORY AND PHYSICAL DATE OF SURGERY: 08/12/2024. HISTORY OF PRESENT ILLNESS: Evangelista Diana is a 64-year-old gentleman seen with progressive left shoulder pain. We discussed options regarding treatment. He elected to proceed with left shoulder arthroscopy. Consent regarding the procedure was obtained. PAST MEDICAL HISTORY: Hypertension. PAST SURGICAL HISTORY: Spine, neck surgery, right shoulder arthroscopy, left eye surgery. DAILY MEDICATIONS: Tylenol. ALLERGIES: None reported. SOCIAL HISTORY: Denies tobacco use. PHYSICAL EVALUATION OF THE LEFT SHOULDER: Flexion is 130 degrees. Abduction is 110 degrees. External rotation is 40 degrees with pain and weakness. There is tenderness along the anterolateral acromion, bicipital groove, and rotator cuff tendon insertion site. Impingement is positive at 90 degrees. Cross-body adduction sign is positive. Drop-arm sign is positive. Distal neurovascular exam is intact. IMAGING STUDIES: Radiographs of the left shoulder revealed a type 2 acromion evidence for acromioclavicular joint osteoarthritis and cystic changes of the greater tuberosity. MRI of the left shoulder revealed a rotator cuff tendon tear, labral tear, and acromioclavicular joint osteoarthritis. IMPRESSION: 1. Left shoulder impingement with rotator cuff tear. 2. Left shoulder acromioclavicular joint osteoarthritis. 3. Left shoulder labral tear. 4. Left shoulder bicipital tendinitis. PLAN: Left shoulder arthroscopy with rotator cuff repair, decompression, biceps tenodesis, Hang procedure and debridement. MMODL / IJN: [id number] /
[2024-08-12] MEDS ORDERED: HYDROmorphone 0.5 MG/0.5 ML SYRINGE IVP PRN (07:00)
[2024-08-12] MEDS: IV FLUID CONTINUATION 1,000 ML IV ONE (07:07)
[2024-08-12 07:17] VITALS: RESP 16
[2024-08-12] MEDS: fentaNYL (PF) 50 MCG/ML 2 ML AMP IVP ONE (07:45)
[2024-08-12] MEDS: MIDAZOLAM 2 MG/2 ML VIAL IVP ONE (07:45)
[2024-08-12] MEDS: LACTATED RINGERS 1,000 ML IV SCH (07:56)
[2024-08-12] MEDS: ONDANSETRON 4 MG/2 ML VIAL IVP STA (07:57)
[2024-08-12] MEDS: DEXAMETHASONE SOD PHOSPHATE 4 MG/ML 1 ML VIAL IVP STA (07:58)
[2024-08-12] MEDS ORDERED: fentaNYL (PF) 50 MCG/ML 2 ML AMP ONE (08:24)
[2024-08-12] MEDS ORDERED: WATER FOR INJECTION, STERILE 10 ML VIAL IV ONE (08:24)
[2024-08-12] MEDS ORDERED: MIDAZOLAM 2 MG/2 ML VIAL ONE (08:24)
[2024-08-12] MEDS ORDERED: LIDOCAINE 1% INJ 10MG/ML (20 ML MDV) ONE (08:24)
[2024-08-12] MEDS ORDERED: ROPIVACAINE 5 MG/ML 30 ML VIAL ONE (08:24)
[2024-08-12] MEDS ORDERED: PROPOFOL 10 MG/ML 20 ML VIAL IV ONE (08:24)
[2024-08-12] MEDS ORDERED: SUCCINYLCHOLINE CHLORIDE 200 MG/10 ML VIAL IV ONE (08:24)
[2024-08-12] MEDS ORDERED: PHENYLEPHRINE-0.9% NACL SYG 1,000 MCG/10 ML SYRINGE ONE (08:24)
[2024-08-12] MEDS ORDERED: ePHEDrine 50 MG/ML 1 ML VIAL ONE (08:24)
[2024-08-12] MEDS: LACTATED RINGERS 1,000 ML IV ONE (10:02)
--- NOTE | 2024-08-12 10:02 | P.ANPRN ---
Procedure Note - Anesthesia - Nerve Block Performed Left Interscalene Single Time Out Performed: Yes ([id number]) Date of Procedure: 08/12/24 Procedure Start Time: :44 Procedure Stop Time: :49 Location of Patient: PreOp Indication: Acute Post-Operative Pain, Requested by Surgeon Specifically requested for management of pain by DrLucina: Landen Wheatley Sedation Type: Sedate with meaningful contact maintained Preparation: Sterile Prep Position: Supine Catheter: None Needle Types: Pajunk Needle Gauge: 21 Ultrasound used to visualize needle placement: Yes Ultrasound used to observe medication spread: Yes Injectate: 0.5% Ropivacaine (see comment for volume) (30cc) Blood Aspirated: No Pain Paresthesia on Injection Noted: No Resistance on Injection: Normal Image Stored and Saved: Yes Events: Uneventful and Well Tolerated
--- NOTE | 2024-08-12 10:12 | P.OP ---
Date of Procedure: 08/12/24 Preoperative Diagnosis: Left shoulder impingement Postoperative Diagnosis: 1. Left shoulder rotator cuff tear 2. Left shoulder impingement 3. Left shoulder bicipital tendinitis 4. Left shoulder superior labral tear Procedure(s) Performed: 1. Left shoulder arthroscopic rotator cuff repair 2. Left shoulder arthroscopic subacromial decompression 3. Left shoulder arthroscopic biceps tenodesis 4. Left shoulder arthroscopic debridement labral tear Implants: 2Arthrex 4.75 swivel lock anchors Anesthesia: GETA, regional (Interscalene block) Surgeon: Landen Wheatley Benefits Representative #1: Wilver Zapata Estimated Blood Loss (ml): 8 Pathology: none sent Condition: stable Disposition: PACU Indications for Procedure: 64-year-old patient seen with progressive left shoulder pain. After having treatment options discussed, he elected to proceed with arthroscopy. Operative Findings: See description of procedure Description of Procedure: Patient underwent an interscalene block by department of anesthesia. The patient was then taken to the operative suite. The patient underwent a general anesthetic by the department of anesthesia. The patient was placed into a lateral position and secured. There was appropriate padding of the bony prominence. Left shoulder was then prepped and draped in normal sterile orthopedic fashion. We placed the extremity in 10 pounds of longitudinal traction. A posterior incision was now made for a posterior working portal site. The trocar and cannula were inserted into the glenohumeral joint. Arthroscopy was initiated. Spinal needle was now inserted anteriorly, to ascertain the anterior working portal site. An incision was now made in that area, a trocar was inserted followed by a probe. There was hyperemia of the long head biceps tendon consistent with bicipital tendinitis. There was superficial tearing of the superior labrum. There was an obvious full-thickness rotator cuff tendon tear I could visualize from the glenohumeral joint. I debrided the superficial labral tear getting down to stable labral tissue. I introduced the cannula through the anterior portal site. I passed a loop and tack stitch through the biceps tendon. I released the biceps from the superior labral anchor. I punched a hole at the interval for insertion of an anchor. With the assistance of Jason SIMMONS I passed the suture through the eyelet of an Arthrex 4.75 swivel lock anchor. I placed the eyelet into the prepunched a hole and held it in position while Jason SIMMONS tensioned the suture and deployed the anchor with good fixation noted. The residual suture limb was clipped. We had a stable appearing biceps tenodesis. The residual labrum was probed and was found to be stable. There was no significant chondromalacia present in the glenohumeral joint. Instruments were now removed from the glenohumeral joint. Utilizing the posterior working portal site, the trocar and cannula were inserted into the subacromial space. Arthroscopy initiated. I made an incision 2 fingerbreadths lateral to the acromion. I introduced my trocar followed by my ArthroCare ablator. I now began ablating thick subacromial bursal tissue, which exposed the undersurface of the anterior acromion. There was diminished subacromial space. There was a very prominent anterior acromion. A motorized bur was introduced and a subacromial decompression was performed. I also excised some osteophytes off the inferior aspect of the distal clavicle. The AC joint was visualized and noted to be moderately arthritic. I did not think enough to warrant a Hang procedure. I turned my attention to the rotator cuff tendon. There was a full-thickness tear along the anterior aspect of the distal supraspinatus. I debrided the margins getting down to stable tendon tissue. The defect/tear measured approxione 0.5 cm and was freely mobile over the footprint. I abraded the footprint with a motorized bur. With the assistance of Jason SIMMONS I passed 2 everted mattress sutures through good bites of rotator cuff tendon. I punched a hole in the footprint area for insertion of an anchor. All 4 limbs of suture were passed through the eyelet of an Arthrex 4.75 swivel lock anchor. I placed the eyelet into the prepunch hole. I held in position while Jason SIMMONS tension all 4 limbs of suture and deployed the anchor with good fixation noted. All residual suture limbs were now clipped. We had good compression of the tendon along the entire footprint. Instruments now removed from the portal sites. All portal sites were approximated with nylon suture. Sterile dressings were applied followed by a shoulder sling. Wilver SIMMONS assisted in all aspects of this case. The patient was awakened, transferred to a bed, and taken to recovery in stable condition.
[2024-08-12 10:16] VITALS: TEMP 97.1
[2024-08-12 11:17] VITALS: BP 138/84; PULSE 75
== END 2024-08-12 12:12 | disposition home or self-care (01) ==
LOC: OR 06:50
PROVIDERS: ATTEND Orthopaedic Surgery
DX: M75.102 Unspecified rotator cuff tear or rupture of left shoulder, not specified as traumatic (principal); M75.22 Bicipital tendinitis, left shoulder; S43.432A Superior glenoid labrum lesion of left shoulder, initial encounter; S43.492A Other sprain of left shoulder joint, initial encounter; I10 Essential (primary) hypertension; F17.200 Nicotine dependence, unspecified, uncomplicated; M19.012 Primary osteoarthritis, left shoulder; X58.XXXA Exposure to other specified factors, initial encounter
CPT/HCPCS: 64415; 29824; 29827; 29828; 29807; C1713 ×3; J2250; J0330; J1100; J0690; J2405; J2003; J3010; J2795; J2704; J2371